=== PATIENT | female | born 1975 ===

== ENCOUNTER 2023-04-02 07:00 | Inpatient (IN) | payer OTHER ==
[~2023-04-02] VITALS: Ht 157.5 cm; Wt 75.7 kg
[2023-04-02] MEDS ORDERED: PLAQUENIL PO (08:35)
[2023-04-08] MEDS ORDERED: HYDROXYCHLOROQ200 MG (15:10)
[2023-04-11] MEDS ORDERED: IBUPROFEN800 MG PO (09:14)
== END 2023-04-11 09:44 | disposition home or self-care (01) | DRG 743 ==
LOC: SURH 04-08 07:00 → O/R 04-08 11:46 → SURH 04-08 14:30 → OB/GYN 04-09 00:37
PROVIDERS: ADMIT Obstetrics & Gynecology; ATTEND Obstetrics & Gynecology
PROC: 0UT70ZZ Resection of Bilateral Fallopian Tubes, Open Approach (ICD-10-PCS; 2023-04-08)
PROC: 0UT90ZZ Resection of Uterus, Open Approach (ICD-10-PCS; principal; 2023-04-08 14:30)
DX: D25.1 Intramural leiomyoma of uterus (principal); D25.0 Submucous leiomyoma of uterus; N72 Inflammatory disease of cervix uteri; Z20.822 Contact with and (suspected) exposure to COVID-19; N73.6 Female pelvic peritoneal adhesions (postinfective)